=== PATIENT | male | born 1965 | race Caucasian/White ===

== ENCOUNTER 2020-01-07 11:57 | Emergency (ER) | payer OTHER, MEDICAID ==
[~2020-01-07] VITALS: Ht 190.5 cm; Wt 108.9 kg
[2020-01-07 14:00] VITALS: BP_SYST 126
[2020-01-07 14:30] VITALS: BP_SYST 126
== END 2020-01-07 14:30 | disposition left against medical advice (07) ==
LOC: SED 11:57
DX: M79.643 Pain in unspecified hand (principal); M79.89 Other specified soft tissue disorders; Z53.21 Procedure and treatment not carried out due to patient leaving prior to being seen by health care provider